=== PATIENT | male | born 1955 | race Hispanic/Latino ===

== ENCOUNTER 2018-08-28 06:10 | Observation (INO) | payer BC ==
[2018-08-27 14:51] LABS: BASOPHILS % 0.4 % (0.0-1.0); EOSINOPHILS # (AUTO) 0.1 (0.0-0.4); EOSINOPHILS % 1.8 % (0.0-6.0); HEMATOCRIT 50.4 % (38.2-49.6); LYMPHOCYTES # (AUTO) 1.3 (1.0-3.2); LYMPHOCYTES % 18.8 % (18.0-39.1); MEAN CORPUSCULAR HEMOGLOBIN 32.9 pg (28-32); MEAN CORPUSCULAR HGB CONC 33.7 g/dL (31-35); MEAN CORPUSCULAR VOLUME 97.7 fL (81-99); MONOCYTES # (AUTO) 0.5 (0.2-0.8); MONOCYTES % 7.2 % (4.4-11.3); NEUTROPHILS # (AUTO) 4.9 (2.1-6.9); NEUTROPHILS % 71.4 % (38.7-80.0); PLATELET COUNT 158 x10e3/uL (140-360); RED BLOOD COUNT 5.16 x10e6/uL (4.3-5.7)
[~2018-08-28] VITALS: Ht 167.6 cm; Wt 91.0 kg
[~2018-08-28 06:10] MED LIST: FLOMAX0.4 MG PO; METOPROLOL SUCC50 MG PO; PLAVIX75 MG PO; ROPIVACAINE 246.25 MG, EPINEPHRINE HCL 1:1000 0.5 MG, CLONIDINE HCL 0.08 MG, KETOROLAC ... INJ ONE; SIMVASTATIN40 MG PO
[2018-08-28] MEDS ORDERED: VANCOMYCIN 1GM/NS 250 ML 250 ML ONE (06:38)
[2018-08-28] MEDS ORDERED: DEXAMETHASONE SOD PHOS 10 MG/1 ML VIAL ONE (06:52)
[2018-08-28] MEDS ORDERED: CELECOXIB 200 MG CAP ONE (06:52)
[2018-08-28] MEDS ORDERED: GABAPENTIN 300 MG CAP ONE (06:52)
[2018-08-28] MEDS ORDERED: BACITRACIN 50,000 UNIT VIAL ONE (07:07)
[2018-08-28] MEDS ORDERED: TRANEXAMIC ACID 1,000 MG/10 ML ML ONE (07:07)
[2018-08-28] MEDS ORDERED: MUPIROCIN 2% OINT 22 GM TUBE ONE (07:07)
[2018-08-28] MEDS ORDERED: SODIUM CHLORIDE 0.9% 1000ML 1,000 ML IV SCH (10:25)
[2018-08-28] MEDS ORDERED: ACETAMINOPHEN 650 MG SUPP PR PRN (10:30)
[2018-08-28] MEDS ORDERED: KETOROLAC TROMETHAMINE 30 MG/ML VIAL IV PRN (10:30)
[2018-08-28] MEDS ORDERED: PROMETHAZINE HCL (IM) 25 MG/ML VIAL IM PRN (10:30)
[2018-08-28] MEDS ORDERED: HYDROCODONE/APAP 5MG-325MG TAB PO PRN (10:30)
[2018-08-28] MEDS ORDERED: DOCUSATE SODIUM 100 MG CAP PO PRN (10:30)
[2018-08-28] MEDS ORDERED: ONDANSETRON HCL INJ 2 MG/ML VIAL IV PRN (10:30)
[2018-08-28] MEDS ORDERED: DIPHENHYDRAMINE HCL INJ 50 MG/ML VIAL IM/IV PRN (10:30)
[2018-08-28] MEDS ORDERED: HYDROCODONE/APAP 7.5MG-325MG 1 EA TAB PO PRN (10:30)
[2018-08-28] MEDS ORDERED: ACETAMINOPHEN 1000 MG/100 ML IV SCH (12:00)
--- NOTE | 2018-08-28 12:12 | Diagnostic Imaging Report ---
PROCEDURE: X-RAY LEFT KNEE, ONE OR TWO VIEWS COMPARISON: None. INDICATIONS:POST OPERATIVE LEFT KNEE SURGERY FINDINGS: See conclusion. CONCLUSION: Status post total left knee replacement with surrounding soft tissue swelling, air and matteo consistent with recent surgery. No acute fractures. There are multiple clips present in the soft tissues of the distal thigh. Freddy Floyd D.O. Dictated by: Freddy Floyd D.O. on 08/28/2018 at 12:22 Electronically approved by: Freddy Floyd D.O. on 08/28/2018 at 12:22
[2018-08-28 13:12] VITALS: BP 122/74
[2018-08-28 13:53] VITALS: BP 122/74
--- NOTE | 2018-08-28 14:32 | Operative Report ---
DATE OF PROCEDURE: August 28, 2018 PREOPERATIVE DIAGNOSIS: Osteoarthritis, left knee. POSTOPERATIVE DIAGNOSIS: Osteoarthritis, left knee. PROCEDURE: Left total knee arthroplasty. INDICATIONS: The patient is a 63-year-old gentleman who has clinic signs and symptoms consistent with osteoarthritis of his left knee. He has failed conservative management and would like to proceed with a left total knee replacement. The risks and benefits have been explained at length. He states he understands and wishes to proceed. DESCRIPTION OF PROCEDURE: The patient was brought to the operating room and placed under general anesthetic. He received a regional block, prophylactic antibiotics and tranexamic acid in the holding area. His left lower extremity was prepped and draped in a sterile manner. A preoperative time out was performed. The extremity was exsanguinated, and a proximal tourniquet was inflated to 300 mmHg. An anterior approach with a medial parapatellar arthrotomy was performed. Clear synovial fluid was removed from the joint. Soft-tissue releases were performed to bring the knee up into flexion with the patella everted. The cruciate ligaments were sacrificed. Marginal osteophytes and meniscal remnants were removed. Throughout the case, a [employer] Person[employer] knee system was used. An extramedullary cutting guide was used to resect the proximal tibia. The cut was referenced off of the medial compartment. The slope was dialed in to match the existing slope. The tibial baseplate was noted to be a size G. The central fin punch was impacted, and attention was directed towards the distal femur. An intramedullary cutting guide was used to resect the distal femur in 5 degrees of valgus and 3 degrees of external rotation. The rotation was referenced off of the epicondylar axis, Center's line and posterior condyles. The femoral component was noted to be a size number 9. Anterior and posterior cuts were made. Trial reduction was performed. A 10-mm medial congruent insert provided appropriate soft-tissue balancing in flexion and extension. The patella was resurfaced with a 32-mm patellar button. The thickness was checked before and after and was right around 23 mm. Patellar tracking was noted to be concentric. The trial components were then all removed. The knee was injected with a 100-mL premixed pericapsular LUIZ injection. The knee was thoroughly irrigated with a Pulsavac. The components were cemented into place using a single mix of Palacos cement preloaded with antibiotics. Care was taken to remove extravasated cement. The wound was further irrigated while the cement cured. The arthrotomy was then closed with interrupted #1 Ethibond. The knee was put through flexion and extension to ensure a secure closure. The skin was closed with subcuticular Vicryl and matteo. A sterile bandage was applied. The patient was extubated and transported to the recovery room in stable condition. Blood loss was minimal. All needle and sponge counts were correct. Job#: [id number]
[2018-08-28] MEDS ORDERED: CELECOXIB 100 MG CAP PO SCH (17:00)
[2018-08-28 17:04] VITALS: BP 106/62
[2018-08-28] MEDS ORDERED: LIDOCAINE HCL 2% LOCAL INJ 5 ML SDV VIAL INJ ONE (17:32)
[2018-08-28] MEDS ORDERED: SEVOFLURANE INHAL SOLN 250 ML PEN BTL ONE (17:32)
[2018-08-28] MEDS ORDERED: ACETAMINOPHEN 1000 MG/100 ML IV ONE (17:32)
[2018-08-28] MEDS ORDERED: PROPOFOL IV EMULSION 10 MG/ML 20 ML VIAL ONE (17:32)
[2018-08-28] MEDS ORDERED: ONDANSETRON HCL INJ 2 MG/ML VIAL ONE (17:32)
[2018-08-28] MEDS: ASPIRIN 325 MG TAB PO SCH (17:46)
[2018-08-28] MEDS: CELECOXIB 200 MG CAP PO SCH (17:46)
[2018-08-28] MEDS: VANCOMYCIN 1GM/NS 250 ML 250 ML IV SCH (17:46)
[2018-08-28] MEDS ORDERED: MIDAZOLAM HCL 2 MG/2 ML VIAL ONE (19:26)
[2018-08-28] MEDS ORDERED: FENTANYL CITRATE/PF 100MCG/2 ML INJ ONE (19:26)
[2018-08-28] MEDS ORDERED: BUPIVACAINE HCL 0.5% INJ 30 ML VIAL INJ ONE (19:32)
[2018-08-28] MEDS ORDERED: EPINEPHRINE HCL INJ 1 MG/ML AMP ONE (19:32)
[2018-08-28 20:00] VITALS: BP 98/60
[2018-08-28] MEDS: ACETAMINOPHEN 1000 MG/100 ML IV SCH (20:47)
[2018-08-28] MEDS ORDERED: ZOLPIDEM TARTRATE 5 MG TAB PO PRN (21:00)
[2018-08-29] VITALS: BP 104/65
[2018-08-29] MEDS: ACETAMINOPHEN 1000 MG/100 ML IV SCH ×2 (02:00→09:02)
[2018-08-29 04:00] VITALS: BP 110/68
[2018-08-29] MEDS: VANCOMYCIN 1GM/NS 250 ML 250 ML IV SCH (05:19)
--- NOTE | 2018-08-29 06:28 | Consultation ---
AUDIO CUTTING IN AND OUT IN MULTIPLE PORTIONS OF THE REPORT DATE OF CONSULTATION: REASON FOR CONSULTATION: Postop medical management. HISTORY OF PRESENT ILLNESS: Patient is a 63-year-old gentleman, status post end-stage renal disease . He denies any fever, chills, nausea, vomiting, shortness of breath, dizziness on review of systems. PAST MEDICAL HISTORY: Hypertension, hyperlipidemia . MEDICATIONS: See DEC. ALLERGIES: See DEC. SOCIAL HISTORY: Nonsmoker, nondrinker. FAMILY HISTORY: Noncontributory. PHYSICAL EXAM VITALS: He is 98.7, blood pressure 96/52, pulse of 84 . GENERAL: in no apparent distress. NECK: Supple. CARDIOVASCULAR: Regular rate and rhythm. LUNGS: Clear to auscultation bilaterally. ABDOMEN: Good bowel sounds. Soft, nontender. EXTREMITIES: No clubbing, cyanosis. NEUROLOGIC: Nonfocal. ASSESSMENT AND PLAN 1. . Continue with physical therapy. 2. Hypertension. Will continue with his home medication on discharge. 3. Hyperlipidemia. Will continue his home medicines on discharge home. 4. . Will continue with his home meds on discharge. Please see hospital chart for full details. Job#: [id number] CQ
[2018-08-29 08:19] VITALS: BP 119/69
[2018-08-29] MEDS ORDERED: TAMSULOSIN HCL 0.4 MG CAP PO SCH (09:00)
[2018-08-29] MEDS ORDERED: CLOPIDOGREL BISULFATE 75 MG TAB PO SCH (09:00)
[2018-08-29] MEDS ORDERED: METOPROLOL SUCCINATE 50 MG TAB XL PO SCH (09:00)
[2018-08-29 09:02] VITALS: BP 119/69
[2018-08-29] MEDS: CELECOXIB 200 MG CAP PO SCH (09:02)
[2018-08-29] MEDS: ASPIRIN 325 MG TAB PO SCH (09:02)
[2018-08-29] MEDS ORDERED: ACETAMINOPHEN 1000 MG/100 ML IV PRN (10:30)
[2018-08-29 11:10] VITALS: BP 156/88
[2018-08-29] MEDS ORDERED: HYDROCODON-ACE1 EA12 (11:14)
[2018-08-29] MEDS ORDERED: SIMVASTATIN 40 MG TAB PO SCH (21:00)
== END 2018-08-29 12:35 | disposition home health service (06) ==
LOC: OR 06:10 → PACU V 10:27 → MED/SURG 12:18
PROVIDERS: ADMIT Specialist; ATTEND Specialist
DX: M17.12 Unilateral primary osteoarthritis, left knee (principal); Z87.891 Personal history of nicotine dependence; Z88.0 Allergy status to penicillin; I25.10 Atherosclerotic heart disease of native coronary artery without angina pectoris; I10 Essential (primary) hypertension; N40.0 Benign prostatic hyperplasia without lower urinary tract symptoms; E78.5 Hyperlipidemia, unspecified
CPT/HCPCS: 27447; 36415 ×2; 73560; 85014; 85018; 85025; 86850; 86900; 86920; 97116 ×2; 97161; 97530; G0378 ×2; G8978; G8979; J0131 ×2; J0171; J1100; J1885; J2001; J2250; J2405; J2704; J2795; J3370 ×2; J7030; C1713; C1776; J1200

== ENCOUNTER 2018-08-29 16:09 | Observation (INO) | payer BC ==
[~2018-08-29] VITALS: Ht 167.6 cm; Wt 90.7 kg
[~2018-08-29 16:09] MED LIST changes: +HYDROCODON-ACE1 EA12; -ROPIVACAINE 246.25 MG, EPINEPHRINE HCL 1:1000 0.5 MG, CLONIDINE HCL 0.08 MG, KETOROLAC ... INJ ONE
--- OUTSIDE RECORDS SUMMARY | 2018-08-29 16:13 | XMS REPORT ---
Author [facility] Address Unknown Phone Unavailable Care Team Providers Care Javascript Programmer Name Role Phone NEEL CRAFT Unavailable Unavailable Problems This patient has no known problems. Allergies, Adverse Reactions, Alerts This patient has no known allergies or adverse reactions. Medications This patient has no known medications. Results Test Description Test Time Test Comments Text Results Atomic Results Result Comments KNEE LEFT 1-2 VIEWS 2018-08-28 12:22:00 [place] [address] Patient Name: KAMERON CISSE MR #: [id number] : 1955 Age/Sex: 63/M Req #: [id number] [facility] Physician: NEEL CRAFT MD Ordered by: NEEL CRAFT MD Report #: [id number] Location: PACU Room/Bed: [facility]- Procedure: [id number] DX/KNEE LEFT 1-2 VIEWS Exam Date: 08/28/18 Exam Time: 1038 REPORT STATUS: Signed PROCEDURE: X-RAY LEFT KNEE, ONE OR TWO VIEWS CO MPARISON: None. INDICATIONS: POST OPERATIVE LEFT KNEE SURGERY FINDINGS: See conclusion. CONCLUSION: Status post total left knee replacement with surrounding soft tissue swelling, air and matteo consistent with recent surgery. No acute fractures. There are multiple clips present in the soft tissues of the distal thigh. Valente Floyd D.O. Dictated by: Valente Floyd D.O. on 08/28/2018 at 12:22 Electronically approved by: Valente Floyd D.O. on 08/28/2018 at 12:22 Dictated By: VALENTE FLOYD DO 1222 Transcribed By: BRIANDA on 08/28/18 1222 COPY TO: NEEL CRAFT MD
--- NOTE | 2018-08-29 17:33 | Diagnostic Imaging Report ---
Exam: CT of the head and cervical spine without contrast History: Fall, pain, on blood thinners Comparison studies: None Technique: Axial images were obtained from the brain and cervical spine. Coronal and sagittal images reconstructed from the axial data. Dose modulation, iterative reconstruction, and/or weight based adjustment of the mA/kV was utilized to reduce the radiation dose to as low as reasonably achievable. Intravenous contrast: None Findings: Head CT: Scalp/skull: No abnormalities. No fractures, blastic or lytic lesions. Brain sulci: Appropriate for age. Ventricles: Normal in size and configuration. No hydrocephalus. Extra-axial spaces: No masses. No fluid collections. Parenchyma: A 5 mm cortical calcification in the right inferior frontal gyrus is likely the sequelae of previous infectious or inflammatory insult. No masses, hemorrhage, acute or chronic cortical vascular insults. Sellar/suprasellar region: No abnormalities. Craniocervical junction: Patent foramen magnum. No Chiari one malformation. Incidental: Mild calcified atherosclerotic plaques in the carotid siphons. Cervical spine CT: Airway: Patent. Fractures: None. Soft tissues: No gross abnormalities. Atlantoaxial articulation: Intact. Alignment: Grade 1 degenerative anterolisthesis of C3 on C4. Straightening of the normal cervical spine lordosis. Cervicomedullary junction: No abnormalities. Patent foramen magnum. Vertebrae: No infection or neoplasm. Degenerative changes: * Degenerated fused cyst at C2-3 * Moderately degenerated at C5-6 and C6-7. No significant canal stenosis. * Degenerative foraminal stenosis at C2-C3 (mild left), C3-C4 (moderate left), C4-C5 (moderate right) and C5-C6 (moderate bilateral) due to uncovertebral and facet arthropathy. Incidental findings: Mild calcified atherosclerotic plaque in the carotid bulbs.. IMPRESSION: Head CT: No acute abnormalities. Specifically, no acute hemorrhage Cervical spine CT: 1. No acute abnormalities. Specifically, no fractures or 2. Cannot adequately evaluate for ligament, spinal cord and or vascular abnormalities. 3. Degenerative changes as described Preliminary report dictated by Dr. Viki Gibbons, Neuroradiology Fellow. A final report by the attending radiologist will follow. Signed by: Dr. Ruben Morocho M.D. on 08/29/2018 7:51 PM
--- NOTE | 2018-08-29 17:37 | Diagnostic Imaging Report ---
EXAM: XR CHEST 1 VIEW DATE: 08/29/2018 4:55 PM INDICATION: Fall COMPARISON: None FINDINGS: Lines and Tubes: None Heart and Mediastinum: No acute cardiomediastinal findings. Sternotomy changes. Lungs and Pleura: No significant pleural effusion, pneumothorax, or focal consolidation. Bones and Soft Tissues: No acute findings. IMPRESSION: 1. No acute cardiopulmonary findings. Signed by: Dr. Allan Higgins MD on 08/29/2018 5:33 PM
--- NOTE | 2018-08-29 17:38 | Diagnostic Imaging Report ---
EXAM: KNEE LEFT 1-2 VIEWS DATE: 08/29/2018 4:34 PM INDICATION: Fall COMPARISON: None FINDINGS: TKA changes present with soft tissue swelling and skin matteo present. No distinct fracture or hardware complication. Soft tissue gas presumed surgical. IMPRESSION: Postsurgical knee. Signed by: Dr. Allan Higgins MD on 08/29/2018 5:34 PM
[2018-08-29] MEDS ORDERED: HYDROMORPHONE 1MG/1ML INJ IV PRN (18:15)
[2018-08-29] MEDS ORDERED: LACTULOSE SYRUP 20 GM/30 ML UDC PO PRN (18:15)
[2018-08-29] MEDS ORDERED: DIPHENHYDRAMINE HCL INJ 50 MG/ML VIAL IV PRN (18:15)
[2018-08-29] MEDS ORDERED: ONDANSETRON HCL INJ 2 MG/ML VIAL IV PRN (18:15)
[2018-08-29] MEDS ORDERED: SODIUM CHLORIDE FLUSH 10 ML SYR INJ PRN (18:15)
[2018-08-29] MEDS ORDERED: ENALAPRILAT IV INJ 1.25 MG/ML VIAL IV PRN (18:15)
[2018-08-29] MEDS ORDERED: ACETAMINOPHEN 325 MG TAB PO PRN (18:15)
[2018-08-29] MEDS ORDERED: HYDROMORPHONE 2MG/ML 2 MG/ML ML IV PRN (18:30)
[2018-08-29 18:34] LABS: BASOPHILS % 0.2 % (0.0-1.0); EOSINOPHILS % 0.3 % (0.0-6.0); HEMATOCRIT 43.4 % (38.2-49.6); HEMOGLOBIN 14.6 g/dL (14.0-18.0); LYMPHOCYTES # (AUTO) 1.4 (1.0-3.2); LYMPHOCYTES % 10.4 % (18.0-39.1); MEAN CORPUSCULAR HEMOGLOBIN 32.8 pg (28-32); MEAN CORPUSCULAR HGB CONC 33.6 g/dL (31-35); MEAN CORPUSCULAR VOLUME 97.5 fL (81-99); MONOCYTES % 7.5 % (4.4-11.3); NEUTROPHILS # (AUTO) 10.5 (2.1-6.9); NEUTROPHILS % 81.1 % (38.7-80.0); PLATELET COUNT 138 x10e3/uL (140-360); RED BLOOD COUNT 4.45 x10e6/uL (4.3-5.7); RED CELL DISTRIBUTION WIDTH 12.2 % (11.7-14.4)
[2018-08-29] MEDS: HYDROCODONE/APAP 7.5MG-325MG 1 EA TAB PO PRN (18:39)
[2018-08-29] MEDS: FAMOTIDINE 20 MG TAB PO SCH (18:42)
[2018-08-29 18:43] LABS: INR 0.85; PROTHROMBIN TIME 12.4 seconds (11.9-14.5)
[2018-08-29 18:44] LABS: PARTIAL THROMBOPLASTIN TIME 26.8 seconds (23.8-35.5)
[2018-08-29 18:53] LABS: ALANINE AMINOTRANSFERASE 17 IU/L (0-55); ALBUMIN/GLOBULIN RATIO 1.4 (0.8-2.0); ALKALINE PHOSPHATASE 54 IU/L (40-150); ANION GAP 12.6 mmol/L (8-16); BLOOD UREA NITROGEN 15 mg/dL (7-26); BUN/CREATININE RATIO 18 (6-25); CARBON DIOXIDE 26 mmol/L (22-29); CHLORIDE 103 mmol/L (98-107); CREATINE KINASE 486 IU/L (30-200); CREATININE, SERUM 0.84 mg/dL (0.72-1.25); EST GLOMERULAR FILTRATION RATE > 60 ML/MIN (60-); GLUCOSE 102 mg/dL (74-118); POTASSIUM 3.6 mmol/L (3.5-5.1); SODIUM 138 mmol/L (136-145)
[2018-08-29 20:44] VITALS: BP 123/60
[2018-08-29 21:00] VITALS: BP 123/60
[2018-08-29 22:37] VITALS: BP 123/60
[2018-08-30] VITALS: BP 117/66
[2018-08-30 04:00] VITALS: BP 118/74
[2018-08-30 05:21] LABS: BASOPHILS % 0.4 % (0.0-1.0); EOSINOPHILS # (AUTO) 0.1 (0.0-0.4); EOSINOPHILS % 0.8 % (0.0-6.0); HEMATOCRIT 39.5 % (38.2-49.6); HEMOGLOBIN 13.3 g/dL (14.0-18.0); LYMPHOCYTES # (AUTO) 1.5 (1.0-3.2); LYMPHOCYTES % 16.2 % (18.0-39.1); MEAN CORPUSCULAR HEMOGLOBIN 33.3 pg (28-32); MEAN CORPUSCULAR HGB CONC 33.7 g/dL (31-35); MEAN CORPUSCULAR VOLUME 98.8 fL (81-99); MONOCYTES % 10.7 % (4.4-11.3); NEUTROPHILS # (AUTO) 6.8 (2.1-6.9); NEUTROPHILS % 71.4 % (38.7-80.0); PLATELET COUNT 122 x10e3/uL (140-360); RED CELL DISTRIBUTION WIDTH 12.3 % (11.7-14.4)
[2018-08-30] MEDS: HYDROCODONE/APAP 7.5MG-325MG 1 EA TAB PO PRN (05:44)
[2018-08-30] MEDS ORDERED: VANCOMYCIN 1GM/NS 250 ML 250 ML IV ONE (07:00)
[2018-08-30] MEDS: FAMOTIDINE 20 MG TAB PO SCH (07:30)
[2018-08-30 08:34] VITALS: BP 135/61
[2018-08-30] MEDS ORDERED: MUPIROCIN 2% OINT 22 GM TUBE TOP SCH (09:00)
== END 2018-08-30 10:47 | disposition home or self-care (01) ==
LOC: ER 16:09 → ERHOLD 18:23 → MED/SURG 20:26
PROVIDERS: ADMIT Internal Medicine; ATTEND Internal Medicine
DX: S81.022A Laceration with foreign body, left knee, initial encounter (principal); T81.31XA Disruption of external operation (surgical) wound, not elsewhere classified, initial encounter; W01.198A Fall on same level from slipping, tripping and stumbling with subsequent striking against other object, initial encounter; Y93.89 Activity, other specified; Y92.012 Bathroom of single-family (private) house as the place of occurrence of the external cause; I10 Essential (primary) hypertension; Z95.1 Presence of aortocoronary bypass graft; Z88.0 Allergy status to penicillin; I25.10 Atherosclerotic heart disease of native coronary artery without angina pectoris; D64.9 Anemia, unspecified; K21.9 Gastro-esophageal reflux disease without esophagitis
CPT/HCPCS: 12005; 36415 ×2; 70450; 71045; 72125; 73560; 80053; 82550; 82553; 84484; 85025 ×2; 85610; 85730; 93005; 99284; G0378 ×2; J3370